=== PATIENT | male | born 1945 | race Caucasian/White ===

== ENCOUNTER 2024-07-15 08:13 | Emergency (ER) | payer MEDICARE, OTHER, SELFPAY ==
[2024-07-15 08:45] VITALS: BP 134/76; PULSE 62; RESP 18; TEMP 37.4; O2SAT 92
--- NOTE | 2024-07-15 08:45 | ED.URI ---
HPI - URI/Sore Throat General Chief Complaint: Upper Respiratory Infection Stated Complaint: Cold Symptoms Time Seen by Provider: 07/15/24 09:05 Source: patient, RN notes reviewed and old records reviewed Mode of arrival: ambulatory Limitations: no limitations History of Present Illness HPI Narrative: 78-year-old male presents to the [facility] with complaints of body aches, sweats, chills that started over the weekend. Denies fevers. Onset (ago): day(s) (4) Treatments prior to arrival: none Related Data Home Medications Medication Instructions Recorded Confirmed carvedilol 25 mg tablet 25 mg PO BID 07/15/24 07/15/24 cholecalciferol (vitamin D3) 50 50 mcg PO DAILY 07/15/24 07/15/24 mcg (2,000 unit) tablet clonidine 0.3 mg/24 hr weekly 2 patch transdermal WEEKLY 07/15/24 07/15/24 transdermal patch clopidogrel 75 mg tablet 75 mg PO DAILY 07/15/24 07/15/24 darifenacin 7.5 mg tablet,extended 7.5 mg PO DAILY 07/15/24 07/15/24 release 24 hr finasteride 5 mg tablet 5 mg PO DAILY 07/15/24 07/15/24 gabapentin 300 mg capsule 300 mg PO DAILY 07/15/24 07/15/24 gabapentin 300 mg capsule 300 mg PO HS 07/15/24 07/15/24 gemfibrozil 600 mg tablet 600 mg BIDAC 07/15/24 07/15/24 hydralazine 25 mg tablet 25 mg PO DIRECTED 07/15/24 07/15/24 insulin human U-100 NPH-regulr 1 unit subcut DIRECTED 07/15/24 07/15/24 70-30 mix 100 unit/mL subcutaneous susp (Novolin 70/30 U-100 Insulin) losartan 100 mg tablet 100 mg PO DAILY 07/15/24 07/15/24 nifedipine 60 mg tablet,extended 60 mg PO BID 07/15/24 07/15/24 release prazosin 2 mg capsule 2 mg PO HS 07/15/24 07/15/24 quetiapine 50 mg tablet 50 mg PO HS 07/15/24 07/15/24 rosuvastatin 5 mg tablet 5 mg PO DAILY 07/15/24 07/15/24 tamsulosin 0.4 mg capsule 0.4 mg PO DIRECTED 07/15/24 07/15/24 venlafaxine 150 mg tablet,extended 150 mg PO DAILY 07/15/24 07/15/24 release 24 hr Allergies Allergy/AdvReac Type Severity Reaction Status Date / Time fenofibrate Allergy Severe renal Verified 07/15/24 09:19 impairment JOMAR Inhibitors Allergy Mild Swelling Verified 07/15/24 09:19 chlorthalidone Allergy Mild hypercalemi Verified 07/15/24 09:19 a Review of Systems Review of Systems: All systems reviewed & are unremarkable except as noted in HPI and below Constitutional: Constitutional: Reports as per HPI, Reports body ache(s), Reports fatigue and Reports headache(s) Eyes: Eyes: Reports no additional eye complaints ENT: Reports as per HPI and Reports sore throat Cardiovascular: Cardiovascular: Reports no additional cardiovascular complaints, Denies chest pain and Denies dyspnea Respiratory: Respiratory: Reports no additional respiratory complaints, Denies chest congestion, Denies cough and Denies dyspnea Gastrointestinal: Gastrointestinal: Reports no additional gastrointestinal complaints, Denies abdominal pain, Denies nausea and Denies vomiting Musculoskeletal: Musculoskeletal: Reports no additional musculoskeletal complaints Integumentary/Breasts: Skin/Breast: Reports system reviewed and no additional complaints, except as docu Neurologic: Reports system reviewed and no additional complaints, except as documented Psychiatric: Psychiatric: Reports no additional psychiatric complaints Allergic/Immunologic: Allergic/Immunologic: Reports no additional allergic/immunologic complaints PMFSH Past Medical History Medical History Diabetes History of high blood pressure Comments At the time of my signature, I reviewed and agree with the nursing past medical, surgical, social, and family history. There is no relevant family history pertinent to the patient complaint. Exam Const: General: cooperative, healthy appearing, comfortable, no acute distress, well developed, alert and well nourished Nutritional Appearance: well nourished Orientation/consciousness: patient oriented x3 Limitations: no limitations HENMT: He
[2024-07-15 09:19] LABS: EDINFLUASCREEN Negative; EDINFLUBSCREEN Negative
== END 2024-07-15 09:31 | disposition home or self-care (01) ==
PROVIDERS: Emergency Provider Nurse Practitioner
DX: U07.1 COVID-19 (principal); J02.0 Streptococcal pharyngitis; E11.9 Type 2 diabetes mellitus without complications; Z79.4 Long term (current) use of insulin; I10 Essential (primary) hypertension
CPT/HCPCS: 87426; 87804; 87880; 99213; G0463

== ENCOUNTER 2024-07-19 09:16 | Emergency (ER) | payer MEDICARE, OTHER, SELFPAY ==
--- NOTE | 2024-07-19 09:25 | ED.GENADULT ---
HPI - General Adult General Chief complaint: Ear Stated complaint: ExtremeEar Pain Time Seen by Provider: 07/19/24 09:52 Source: patient, RN notes reviewed and old records reviewed Mode of arrival: ambulatory Limitations: no limitations History of Present Illness HPI narrative: 78-year-old male presents to the [facility] with complaints of ear pain Patient was diagnosed with COVID and strep, currently on amoxicillin for the strep. was seen last , 07/15/24, 4 days Patient states yesterday history with some sharp ear pain to the left ear. Onset (ago): day(s) (1) Treatments prior to arrival: other (Amoxicillin) Related Data Home Medications Medication Instructions Recorded Confirmed carvedilol 25 mg tablet 25 mg PO BID 07/15/24 07/19/24 cholecalciferol (vitamin D3) 50 50 mcg PO DAILY 07/15/24 07/19/24 mcg (2,000 unit) tablet clonidine 0.3 mg/24 hr weekly 2 patch transdermal WEEKLY 07/15/24 07/19/24 transdermal patch clopidogrel 75 mg tablet 75 mg PO DAILY 07/15/24 07/19/24 darifenacin 7.5 mg tablet,extended 7.5 mg PO DAILY 07/15/24 07/19/24 release 24 hr finasteride 5 mg tablet 5 mg PO DAILY 07/15/24 07/19/24 gabapentin 300 mg capsule 300 mg PO DAILY 07/15/24 07/19/24 gabapentin 300 mg capsule 300 mg PO HS 07/15/24 07/19/24 gemfibrozil 600 mg tablet 600 mg BIDAC 07/15/24 07/19/24 hydralazine 25 mg tablet 25 mg PO DIRECTED 07/15/24 07/19/24 insulin human U-100 NPH-regulr 1 unit subcut DIRECTED 07/15/24 07/19/24 70-30 mix 100 unit/mL subcutaneous susp (Novolin 70/30 U-100 Insulin) losartan 100 mg tablet 100 mg PO DAILY 07/15/24 07/19/24 nifedipine 60 mg tablet,extended 60 mg PO BID 07/15/24 07/19/24 release prazosin 2 mg capsule 2 mg PO HS 07/15/24 07/19/24 quetiapine 50 mg tablet 50 mg PO HS 07/15/24 07/19/24 rosuvastatin 5 mg tablet 5 mg PO DAILY 07/15/24 07/19/24 tamsulosin 0.4 mg capsule 0.4 mg PO DIRECTED 07/15/24 07/19/24 venlafaxine 150 mg tablet,extended 150 mg PO DAILY 07/15/24 07/19/24 release 24 hr Allergies Allergy/AdvReac Type Severity Reaction Status Date / Time fenofibrate Allergy Severe renal Verified 07/19/24 09:25 impairment chlorthalidone AdvReac Severe hypercalemi Verified 07/19/24 09:25 a JOMAR Inhibitors AdvReac Intermediate Swelling Verified 07/19/24 09:25 Review of Systems Review of Systems: All systems reviewed & are unremarkable except as noted in HPI and below Constitutional: Constitutional: Reports no additional constitutional complaints Eyes: Eyes: Reports no additional eye complaints ENT: Reports as per HPI and Reports otalgia Cardiovascular: Cardiovascular: Reports no additional cardiovascular complaints, Denies chest pain and Denies dyspnea Respiratory: Respiratory: Reports no additional respiratory complaints, Denies chest congestion, Denies cough and Denies dyspnea Gastrointestinal: Gastrointestinal: Reports no additional gastrointestinal complaints, Denies abdominal pain, Denies nausea and Denies vomiting Musculoskeletal: Musculoskeletal: Reports no additional musculoskeletal complaints Integumentary/Breasts: Skin/Breast: Reports system reviewed and no additional complaints, except as docu Neurologic: Reports system reviewed and no additional complaints, except as documented Psychiatric: Psychiatric: Reports no additional psychiatric complaints Allergic/Immunologic: Allergic/Immunologic: Reports no additional allergic/immunologic complaints PMFSH Past Medical History Medical History Diabetes History of high blood pressure Comments At the time of my signature, I reviewed and agree with the nursing past medical, surgical, social, and family history. There is no relevant family history pertinent to the patient complaint. Exam Const: General: cooperative, healthy appearing, comfortable, no acute distress, well developed, alert and well nourished Nutritional Appearance: well n
[2024-07-19 09:27] VITALS: BP 171/71; PULSE 55; RESP 20; TEMP 36.5; O2SAT 98
== END 2024-07-19 10:05 | disposition home or self-care (01) ==
PROVIDERS: Emergency Provider Nurse Practitioner
DX: U07.1 COVID-19 (principal); H60.502 Unspecified acute noninfective otitis externa, left ear; E11.9 Type 2 diabetes mellitus without complications; I10 Essential (primary) hypertension; Z79.4 Long term (current) use of insulin
CPT/HCPCS: 99213; G0463